=== PATIENT | male | born 1940 | race Caucasian/White ===

== ENCOUNTER 2016-09-11 07:00 | Inpatient (IN) | payer MEDICARE, BC ==
[2016-09-11] VITALS (10 sets, daily range): BP systolic 115–120; RESP 18; TEMP 97.4–98.7; Ht 170.2 cm; Wt 80.3 kg
[~2016-09-11] VITALS: Ht 170.2 cm; Wt 80.3 kg
[2016-09-11] MEDS ORDERED: ED DILTIAZEM DRIP 125 ML IV ONE (08:04)
[2016-09-11] MEDS ORDERED: DILTIAZEM 50 MG/10 ML VIAL IV ONE (08:05)
[2016-09-11] MEDS ORDERED: SALINE FLUSH 10 ML FLUSH PRN (11:15)
[2016-09-11] MEDS ORDERED: ASPIRIN EC 81 MG TAB PO SCH (11:15)
[2016-09-11] MEDS ORDERED: CARDIZEM 1 MG/ML DRIP 125 ML IV SCH (15:50)
[2016-09-11] MEDS: DUONEB INH SCH ×2 (17:06→23:05)
[2016-09-11] MEDS: ASPIRIN 81 MG CHEW TAB PO SCH (17:48)
[2016-09-11] MEDS: LEVOTHYROXINE 0.075 MG TAB PO SCH (17:48)
[2016-09-11] MEDS: Furosemide 40 MG TAB PO SCH (17:48)
[2016-09-11] MEDS: METOPROLOL XL 100 MG TAB PO SCH (17:49)
[2016-09-11] MEDS: SALINE FLUSH 10 ML FLUSH SCH ×2 (17:49→20:00)
[2016-09-11] MEDS: *HOME MEDS KEPT IN PHARMACY XX SCH (20:00)
[2016-09-11] MEDS: ROSUVASTATIN 5 MG TAB PO SCH (20:13)
[2016-09-12] VITALS (17 sets, daily range): BP systolic 98–131; RESP 18; TEMP 97.9–98.9
[2016-09-12] MEDS: DUONEB INH SCH ×4 (05:28→23:30)
[2016-09-12] MEDS: SODIUM CHLORIDE 0.9% FLUSH BAG 500 ML IV SCH ×2 (05:47→20:48)
[2016-09-12] MEDS: LEVOTHYROXINE 0.075 MG TAB PO SCH (06:22)
[2016-09-12] MEDS: *HOME MEDS KEPT IN PHARMACY XX SCH ×2 (08:00→20:00)
[2016-09-12] MEDS: METOPROLOL XL 100 MG TAB PO SCH (08:15)
[2016-09-12] MEDS: Furosemide 40 MG TAB PO SCH (08:15)
[2016-09-12] MEDS: SALINE FLUSH 10 ML FLUSH SCH ×2 (08:16→20:00)
[2016-09-12] MEDS: ASPIRIN 81 MG CHEW TAB PO SCH (08:16)
[2016-09-12] MEDS ORDERED: WARFARIN 4 MG TAB PO ONE (09:00)
[2016-09-12] MEDS: ROSUVASTATIN 5 MG TAB PO SCH (21:45)
[2016-09-13] VITALS (16 sets, daily range): BP systolic 103–127; RESP 16–20; TEMP 97.4–98.3
[2016-09-13] MEDS: DUONEB INH SCH ×4 (05:03→23:00)
[2016-09-13] MEDS: *HOME MEDS KEPT IN PHARMACY XX SCH ×2 (07:58→20:00)
[2016-09-13] MEDS: LEVOTHYROXINE 0.075 MG TAB PO SCH (09:13)
[2016-09-13] MEDS: Furosemide 40 MG TAB PO SCH (09:22)
[2016-09-13] MEDS: ASPIRIN 81 MG CHEW TAB PO SCH (09:22)
[2016-09-13] MEDS: SALINE FLUSH 10 ML FLUSH SCH ×2 (09:22→20:11)
[2016-09-13] MEDS: METOPROLOL XL 100 MG TAB PO SCH (09:22)
[2016-09-13] MEDS ORDERED: MEPERIDINE 25 MG/ML IV ONE (13:15)
[2016-09-13] MEDS ORDERED: MIDAZOLAM 2 MG/2 ML INJ ONE (13:15)
[2016-09-13] MEDS ORDERED: MIDAZOLAM 2 MG/2 ML INJ IV ONE (13:15)
[2016-09-13] MEDS ORDERED: MEPERIDINE 50 MG/ML ONE (13:15)
[2016-09-13] MEDS: ROSUVASTATIN 5 MG TAB PO SCH (20:11)
[2016-09-14 04:03] VITALS: BP_SYST 123; RESP 16; TEMP 98.4
[2016-09-14] MEDS: SODIUM CHLORIDE 0.9% FLUSH BAG 500 ML IV SCH (05:13)
[2016-09-14] MEDS: LEVOTHYROXINE 0.075 MG TAB PO SCH (06:07)
[2016-09-14] MEDS: *HOME MEDS KEPT IN PHARMACY XX SCH ×2 (07:12→11:54)
[2016-09-14 07:48] VITALS: BP_SYST 128; RESP 16; TEMP 99
[2016-09-14] MEDS: DUONEB INH SCH (08:02)
[2016-09-14] MEDS: Furosemide 40 MG TAB PO SCH (09:32)
[2016-09-14] MEDS: SALINE FLUSH 10 ML FLUSH SCH (09:32)
[2016-09-14] MEDS: ASPIRIN 81 MG CHEW TAB PO SCH (09:32)
[2016-09-14] MEDS: METOPROLOL XL 100 MG TAB PO SCH (09:33)
[2016-09-14 11:35] VITALS: BP_SYST 128; RESP 16; TEMP 99
== END 2016-09-14 12:03 | disposition home or self-care (01) | DRG 310 ==
LOC: ENRESERVDT → ENRESERVTM → ER 07:00 → ENPENDDIS 11:22 → EMR 11:22 → PCU 15:05
PROVIDERS: ADMIT Specialist; ATTEND Specialist
PROC: 5A2204Z Restoration of Cardiac Rhythm, Single (ICD-10-PCS; principal; 2016-09-13)
CPT/HCPCS: 36415; 36600; 71010; 80048; 80053; 80061; 82550; 82553; 82803; 83880; 84439; 84443; 84484; 85025; 85610; 85730; 93005; 94640; 94799; 96365; 96366